=== PATIENT | male | born 1980 | race Two or more races ===

== ENCOUNTER → 2025-01-29 | Outpatient (CLI) | payer OTHER, SELFPAY ==
--- NOTE | 2025-01-29 16:44 | XR_ITS ---
Examination: MRA intact without intravenous contrast Date and time: January 29, 2025, 181 hrs. Indications: Headaches neck pain wishing in the ears 10 years Technique And Findings: 3-D angiographic images of the neck arterial vessels without intravenous contrast 3-D reconstructions, 3-D post processing including maximum intensity projection images Common carotid arteries carotid bifurcations internal carotid arteries intact Dominant left vertebral artery no neck stenoses No area of neovascularization or around the carotid arteries Impression: No abnormality of neck arterial vessels
== END | disposition home or self-care (01) ==
DX: R51.9 Headache, unspecified (principal)
CPT/HCPCS: 70547